=== PATIENT | female | born 1970 | race Caucasian/White ===

== ENCOUNTER 2023-09-04 17:13 | Emergency (ER) | payer OTHER ==
[~2023-09-04] VITALS: Ht 149.9 cm; Wt 67.8 kg
[2023-09-04 17:36] VITALS: BP 142/92; PULSE 95; RESP 18; TEMP 97.8; O2SAT 100
== END 2023-09-04 19:55 | disposition left against medical advice (07) ==
LOC: ER 17:15
DX: M54.6 Pain in thoracic spine (principal); Z53.21 Procedure and treatment not carried out due to patient leaving prior to being seen by health care provider